=== PATIENT | female | born 1965 | race Caucasian/White ===

== ENCOUNTER 2016-04-26 14:06 | Outpatient (CLI) ==
[2014-01-03 03:27] VITALS: BMI 31.9
[2016-04-26 14:19] LABS: BASOPHILS # (AUTO) 0.1 K/uL (0-0.2); BASOPHILS % (AUTO) 0.8 % (0.0-3.0); EOSINOPHILS # (AUTO) 0.2 K/ul (0.0-0.7); EOSINOPHILS % (AUTO) 2.2 % (0.0-7.0); HEMATOCRIT 37.1 % (37.0-47.0); HEMOGLOBIN 11.9 g/dl (12.0-16.0); IMMATURE GRANULOCYTE % (AUTO) 0.2 % (0.0-5.0); LYMPHOCYTES % (AUTO) 22.4 (10.0-50.0); MEAN CORPUSCULAR HEMOGLOBIN 29.5 pg (27.0-31.0); MEAN CORPUSCULAR HGB CONC 32.1 (31.8-35.4); MEAN CORPUSCULAR VOLUME 92.1 fl (81.0-99.0); MONOCYTES # (AUTO) 0.6 K/uL (0.4-2.0); NEUTROPHILS # (AUTO) 5.9 K/ul (2.0-6.9); NEUTROPHILS % (AUTO) 67.4; PLATELET COUNT 263 10^3/uL (140-440); RED BLOOD COUNT 4.03 10^6/ul (4.20-5.40)
[2016-04-26 14:58] LABS: ALBUMIN 4.4 g/dL (3.4-5.0); ALBUMIN/GLOBULIN RATIO 1.16; ANION GAP 12.2; BILIRUBIN,TOTAL 0.71 mg/dL (0.00-1.20); BUN/CREATININE RATIO 15.55; CALCIUM 9.9 mg/dL (8.2-10.2); CHOL/HDL RATIO 7.6 (4.5-5.5); CREATININE 0.9 mg/dL (0.60-1.30); POTASSIUM 4.2 mmol/L (3.5-5.10); TOTAL PROTEIN 8.2 g/dL (6.4-8.2)
--- NOTE | 2016-04-26 16:11 | CT ---
EXAM: CT chest, abdomen and pelvis without contrast HISTORY: History of lung cancer. Patient with history of hysterectomy. COMPARISON: CT chest 11/28/[address] abdomen pelvis 11/21/2015 TECHNIQUE: Serial axial images of the chest , abdomen and pelvis were obtained from the lung apices to the inferior pelvis without contrast. These were viewed in multiple planes. FINDINGS: Chest: The thyroid demonstrates metallic densities in the anterior inferior left thyroid. No discr ete thyroid nodule is identified. The visualized vessels are unremarkable without aneurysm or steno sis. The heart is normal in size without pericardial effusion. There is an enlarged subcarinal lym ph node measuring up to 3.2 x 4 cm. Soft tissue extends into the left infra hilum and is poorly hayley luated due to lack of contrast measuring at least 2 cm in thickness and may be confluent with the ma ss in the subcarina. The right anterior paratracheal lymph node measures 1.5 cm in comparison to 1. 4 cm on prior. There is a small nodule in the anterior mediastinal fat measuring 0.5 cm in diameter in comparison to 0.4 cm on prior. Hilar nodularity cannot be evaluated due to lack of contrast. There is no pneumothorax with a small left pleural effusion which has mildly increased since prior e xam. There is adjacent consolidative lung. There is no change in the 0.6 cm ground-glass nodularit y in the right lung apex on image 11. There is an unchanged 0.3 cm ground-glass nodule right upper lobe on image 27. There is airway thickening in the left lower lobe and minimal narrowing of the ai rway due to the left infrahilar mass/soft tissue. There is a small cavitary nodule measuring 1.1 x 0.7 cm which is unchanged. The subcarinal and left infrahilar soft tissue mildly narrows the airways to the left lower lobe which are otherwise unremarkable. The osseous structures demonstrate no acut e compression fracture or lytic lesion. Small focus of sclerosis is noted and T10 and unchanged fro m prior. Abdomen/pelvis: The liver and gallbladder are unremarkable. The adrenal glands are unremarkable. T he spleen is unremarkable. The pancreas is normal. The kidneys are unremarkable on this limited ev aluation with no hydronephrosis, stone or cyst. The stomach demonstrates small hiatal hernia. The small bowel in the abdomen pelvis is unremarkable. The colon is unremarkable. Appendix is unremark able. Urinary bladder is distended. There has been a prior hysterectomy. There is no free fluid o r free air. There are are few scattered nonpathologically enlarged lymph nodes. The osseous structu res. There is a lytic lesion in the right inferior pubic ramus with cortical irregularity IMPRESSION: 1. Increased subcarinal lymph adenopathy/mass extending to the left subcarinal space. Findings are concerning for worsening malignancy. Mediastinal lymph node in the right paratracheal space measure s slightly enlarged when compared to prior exam. 2. Increased small left pleural effusion with airway thickening and consolidation noted in the left lower lobe. This may represent infection/inflammation versus neoplasm. 3. Pulmonary nodules bilaterally are not significantly changed with stable probable cavitary nodule in the left lower lobe. 4. Linear lucency in the right inferior pubic ramus with a subtle displaced fracture present. Give n patient diagnosis of neoplasm, pathologic fracture cannot be excluded. No additional areas of brittany ency are identified to suggest additional osseous metastases. 5. Scattered nonenlarged lymph nodes throughout the abdomen and pelvis are nonspecific.
== END 2016-04-26 14:07 | disposition home or self-care (01) ==
LOC: RAD 14:06
PROVIDERS: ATTEND Nurse Practitioner Family
DX: J98.59 Other diseases of mediastinum, not elsewhere classified (principal); C34.90 Malignant neoplasm of unspecified part of unspecified bronchus or lung; C79.9 Secondary malignant neoplasm of unspecified site; R11.2 Nausea with vomiting, unspecified; I10 Essential (primary) hypertension; K90.0 Celiac disease
CPT/HCPCS: 36415; 80053; 80061; 82378; 85025